=== PATIENT | female | born 1965 | race Caucasian/White ===

== ENCOUNTER → 2016-07-26 | Outpatient (CLI) | payer BC ==
--- NOTE | 2016-07-26 10:15 | REPMRS ---
Patient History The patient states she had a clinical breast exam in 07/2016. No known family history of cancer. Digital Woman Screen Mammo: July 26, 2016 - Exam #: [id number] Bilateral CC and MLO view(s) were taken. Technologist: Jyoti Garcia, Technologist Prior study comparison: May 10, 2015, digital woman screen mammo performed at [facility]. March 31, 2014, digital woman screen mammo performed at [facility] to [facility]. FINDINGS: There are scattered fibroglandular densities. There has been no change in the appearance of the mammogram from the prior studies. There is a mild amount of residual fibroglandular tissue which is fairly symmetric. There is no interval development of dominant mass, architectural distortion, or clustered microcalcification suggestive of malignancy. ASSESSMENT: BI-RADS/ACR category 1 mammogram. Negative. Recommendation Routine screening mammogram in 1 year (for women over age 40). This mammogram was interpreted with the aid of an FDA-approved computer-aided dectection system. Electronically Signed By: Kuldeep Caal MD 07/26/16 6528
== END ==
LOC: M WHC 08:41
PROVIDERS: ATTEND Nurse Practitioner Family
DX: Z12.31 Encounter for screening mammogram for malignant neoplasm of breast (principal)

== ENCOUNTER 2017-07-04 07:15 | Day surgery (SDC) | payer BC, OTHER ==
[2017-07-04] MEDS: NS 1,000 ML IV (07:54)
[2017-07-04] MEDS ORDERED: LIDOCAINE 2% INJ 100 MG/5 ML SDV (FOR ANES.) As Ordered (08:15)
[2017-07-04] MEDS ORDERED: PROPOFOL 200 MG/20 ML VIAL As Ordered (08:15)
== END 2017-07-04 09:20 | disposition home or self-care (01) ==
LOC: M OPP 07:15
DX: Z12.11 Encounter for screening for malignant neoplasm of colon (principal); D12.2 Benign neoplasm of ascending colon; D12.0 Benign neoplasm of cecum; D12.5 Benign neoplasm of sigmoid colon; K64.8 Other hemorrhoids; E78.5 Hyperlipidemia, unspecified; F41.9 Anxiety disorder, unspecified; F32.9 Major depressive disorder, single episode, unspecified; Z78.0 Asymptomatic menopausal state; G47.30 Sleep apnea, unspecified; Z79.899 Other long term (current) drug therapy
CPT/HCPCS: 45380

== ENCOUNTER → 2018-06-23 | Outpatient (REF) | payer OTHER ==
[~2018-06-23] MED LIST: ROSU10TA5 PO; VENL150C43 PO
[2018-06-25 14:14] LABS: HPV HYBRID CAPTURE II Negative (Negative)
== END ==
LOC: M SFHCWAGY 10:04
PROVIDERS: ATTEND Nurse Practitioner Family
DX: Z12.4 Encounter for screening for malignant neoplasm of cervix (principal); R14.0 Abdominal distension (gaseous)
CPT/HCPCS: 87624; G0123

== ENCOUNTER → 2018-06-23 | Outpatient (CLI) | payer BC ==
--- NOTE | 2018-06-23 11:01 | REPMRS ---
Patient History The patient states she had a clinical breast exam in 06/2018. No known family history of cancer. Digital Woman Screen Mammo: June 23, 2018 - Exam #: [id number] Bilateral CC and MLO view(s) were taken. Technologist: Sulma Meraz, Technologist Prior study comparison: July 26, 2016, digital woman screen mammo performed at [facility]. May 10, 2015, digital woman screen mammo performed at [facility]. March 31, 2014, digital woman screen mammo performed at [facility]. FINDINGS: There are scattered fibroglandular densities. There has been no change in the appearance of the mammogram from the prior studies. There is a mild amount of scattered fibroglandular density which is fairly symmetric. There is no interval development of dominant mass, architectural distortion, or clustered microcalcification suggestive of malignancy. 3-D tomosynthesis shows no additional findings. Assessment: BI-RADS/ACR category 1 mammogram. Negative Mammogram. Recommendation Routine screening mammogram of both breasts in 1 year (for women over age 40). This patient's Lifetime Breast Cancer RIsk is estimated at 7.4 %. This mammogram was interpreted with the aid of an FDA-approved computer-aided dectection system. Electronically Signed By: Omkar Carey MD 06/23/18 1100
== END ==
LOC: M WHC 09:31
PROVIDERS: ATTEND Nurse Practitioner Family
DX: Z12.31 Encounter for screening mammogram for malignant neoplasm of breast (principal)

== ENCOUNTER → 2018-07-02 | Outpatient (CLI) | payer BC ==
--- NOTE | 2018-07-03 12:18 | REP ---
Clinical: Abdominal pain and bloating. Technique: Transabdominal pelvic ultrasound followed by transvaginal examination for better evaluation of the endometrium and adnexa. Findings: Bladder is normal and measures 12.7 x 8.5 x 9.1 cm. Heterogeneous myomatous uterus measures 9.7 x 5.7 x 6.4 cm. Endometrial complex measures 5.4 mm thickness. Posterior subserosal fibroid measures 2.1 cm maximal diameter; right anterior intramural fibroid measures 1.1 cm maximal diameter, and posterior mid subserosal fibroid measures 3.5 cm maximal diameter. Incidental Nabothian cysts noted. Bilateral ovaries are normal in appearance. Right ovary measures 1.6 x 0.8 x 1.4 cm. Left ovary measures 1.8 x 0.8 x 2.0 cm. No pelvic fluid or adnexal mass lesions. Impression: Heterogeneous myomatous uterus.
== END ==
LOC: M WHC 10:32
PROVIDERS: ATTEND Nurse Practitioner Family
DX: D25.9 Leiomyoma of uterus, unspecified (principal)

== ENCOUNTER → 2019-12-16 | Outpatient (CLI) | payer BC, OTHER ==
[~2019-12-16] MED LIST changes: -ROSU10TA5 PO; +ROSU10TA6 PO
--- NOTE | 2019-12-16 12:10 | REPMRS ---
Patient History The patient states she had a clinical breast exam in December 2019.No known family history of cancer. 3D TOMOSYNTHESIS WAS PERFORMED. [facility] for [facility] 7.2%. Volpara breast density b. Digital Woman Screen Mammo: December 16, 2019 - Exam #: [id number] Bilateral CC and MLO view(s) were taken. Technologist: Na Thibodeaux, Technologist Prior study comparison: June 23, 2018, bilateral digital woman screen mammo performed at [facility]. July 26, 2016, digital woman screen mammo performed at [facility]. FINDINGS: There are scattered fibroglandular densities. There has been no change in the appearance of the mammogram from the prior studies. There is a mild amount of residual fibroglandular tissue which is fairly symmetric. There is no interval development of dominant mass, architectural distortion, or clustered microcalcification suggestive of malignancy. Assessment: BI-RADS/ACR category 1 mammogram. Negative Mammogram. Recommendation Routine screening mammogram in 1 year (for women over age 40). This mammogram was interpreted with the aid of an FDA-approved computer-aided dectection system. Electronically Signed By: Kuldeep Caal MD 12/16/19 1351
== END ==
LOC: M WHC 10:28
PROVIDERS: ATTEND Nurse Practitioner Family
DX: Z12.31 Encounter for screening mammogram for malignant neoplasm of breast (principal)

== ENCOUNTER → 2022-07-02 | Outpatient (CLI) | payer BC, OTHER | LOC: M WHC 10:13 | PROVIDERS: ATTEND Advanced Practice Midwife | DX: Z12.31 Encounter for screening mammogram for malignant neoplasm of breast (principal) ==

== ENCOUNTER → 2024-08-10 | Outpatient (REF) | payer BC ==
[~2024-08-10] MED LIST changes: -ROSU10TA6 PO; +ROSU10TA61 PO
[2024-08-12 12:58] LABS: HPV APTIMA Not Detected (Not Detected)
== END ==
LOC: M SFHCCLAY 11:06
PROVIDERS: ATTEND Nurse Practitioner Family
DX: Z12.4 Encounter for screening for malignant neoplasm of cervix (principal); R87.612 Low grade squamous intraepithelial lesion on cytologic smear of cervix (LGSIL)
CPT/HCPCS: 87624; G0123

== ENCOUNTER → 2024-09-10 | Outpatient (REF) | payer BC | LOC: M SFHCCLAY 09:46 | PROVIDERS: ATTEND Physician Assistant | DX: N89.8 Other specified noninflammatory disorders of vagina (principal); R30.0 Dysuria ==